=== PATIENT | female | born 1980 | race Caucasian/White ===

== ENCOUNTER 2022-10-06 15:50 | Inpatient (IN) | payer OTHER ==
[2022-10-06] MEDS ORDERED: Iopamidol 612 MG/ML 100 ML Bottle IVPUSH ONE (17:37)
[2022-10-06] MEDS ORDERED: Piperacillin/Tazobactam 4.5 GM in Sodium Chloride 0.9% 100 ML IV ONE (19:34)
[2022-10-06] MEDS ORDERED: Levofloxacin/Dextrose 5%-Water 750 MG in Premix Bag 1 BAG IV ONE (19:55)
[2022-10-06] MEDS ORDERED: metroNIDAZOLE/Normal Saline 500 MG in Premix Bag 1 BAG IV ONE (19:55)
[2022-10-06] MEDS ORDERED: Sodium Chloride 0.9% 1,000 ML IV STA (20:19)
[2022-10-06] MEDS ORDERED: Sodium Chloride 0.9% 1,000 ML IV SCH (22:45)
[2022-10-06] MEDS ORDERED: Levofloxacin/Dextrose 5%-Water 750 MG in Premix Bag 1 BAG IV SCH (23:00)
[2022-10-06] MEDS ORDERED: metroNIDAZOLE/Normal Saline 500 MG in Premix Bag 1 BAG IV SCH (23:00)
[2022-10-07] MEDS: metroNIDAZOLE/Normal Saline 500 MG in Premix Bag 1 BAG IV SCH ×3 (05:30→21:01)
[2022-10-07] MEDS ORDERED: oxyCODONE 5 MG Tab PO PRN (08:37)
[2022-10-07] MEDS ORDERED: Acetaminophen 325 MG Tab PO PRN (08:37)
[2022-10-07] MEDS ORDERED: Ondansetron 4 MG/2 ML SDV IV PRN (08:37)
[2022-10-07] MEDS ORDERED: Acetaminophen/Butalbital/Caffeine 325-50-40 MG Tab PO PRN (10:45)
[2022-10-07] MEDS ORDERED: Levofloxacin/Dextrose 5%-Water 750 MG in Premix Bag 1 BAG IV SCH (21:00)
[2022-10-08] MEDS: metroNIDAZOLE/Normal Saline 500 MG in Premix Bag 1 BAG IV SCH (04:33)
[2022-10-08 12:11] VITALS: BP 127/78; PULSE 62
== END 2022-10-08 14:09 | disposition home or self-care (01) | DRG 392 ==
LOC: JD.ED 15:50 → JD.MS 20:45
PROVIDERS: ADMIT Nurse Practitioner Family; ATTEND Internal Medicine
DX: K57.20 Diverticulitis of large intestine with perforation and abscess without bleeding (principal); Z86.16 Personal history of COVID-19; F41.9 Anxiety disorder, unspecified; F32.A Depression, unspecified; G44.209 Tension-type headache, unspecified, not intractable; F17.290 Nicotine dependence, other tobacco product, uncomplicated
CPT/HCPCS: 36415; 74177; 74177-26; 80048; 83735; 84703; 85025; 86140; 96365; 96366; 96368; 99285-25; A9270-GY; J1956; J3490; J7030; Q9967